=== PATIENT | male | born 1985 | race Two or more races ===

== ENCOUNTER 2023-12-10 21:00 | Observation (INO) | payer OTHER ==
[2023-12-10 21:10] VITALS: BMI 32.8
[2023-12-10 21:49] LABS: HEMATOCRIT 27.1 % (35.4-49); HEMOGLOBIN 8.8 GM/dL (11.7-16.9); MCH 25.1 pg (25.7-33.7); MCHC 32.5 g/dl (32.0-35.9); MEAN CELL VOLUME 77.2 fl (80-96); MEAN PLT VOLUME 8.6 fl (7.5-11.1); PLATELET COUNT 74 10^3/uL (134-434); RBC 3.51 M/mm3 (4.00-5.60); RDW 25.2 % (11.9-15.9); WHITE BLOOD COUNT 4.2 K/mm3 (4.0-10.0)
[2023-12-10 22:17] LABS: POTASSIUM 3.8 mmol/L (3.5-5.1)
[2023-12-10 22:22] LABS: BILIRUBIN,DIRECT 1.9 mg/dL (0.0-0.2); CREATININE 0.9 mg/dL (0.55-1.3)
[2023-12-10 22:24] LABS: BILIRUBIN,TOTAL 3.9 mg/dL (0.2-1); INR 1.87 (0.83-1.09); PROTHROMBIN TIME (PATIENT) 21.6 SEC (9.7-13.0); TOT PROT 7.2 g/dl (6.4-8.2)
[2023-12-10 23:11] LABS: ANISOCYTOSIS 1+; MACROCYTOSIS 1+; PLATELET ESTIMATE DECREASED; TARGET CELLS 1+
[2023-12-11 00:20] LABS: HEPATITIS B SURFACE AG MATERN NON-REACTIVE (NONREACTIVE)
[2023-12-11] MEDS: LACTATED RINGERS SOLUTION 1000 ML INFUS.BAG IV ONE (02:47)
[2023-12-11] MEDS: morphine CARPU-JECT 2 MG/1 ML DISP.SYRIN IVPUSH ONE (02:47)
[2023-12-11] MEDS ORDERED: ALBUTEROL SO4 HFA INHALER IH PRN (06:30)
[2023-12-11 07:01] LABS: POTASSIUM 3.5 mmol/L (3.5-5.1)
[2023-12-11 07:10] LABS: HEMATOCRIT 27.9 % (35.4-49); HEMOGLOBIN 9.1 GM/dL (11.7-16.9); MCH 25.4 pg (25.7-33.7); MCHC 32.6 g/dl (32.0-35.9); MEAN PLT VOLUME 8.6 fl (7.5-11.1); PLATELET COUNT 64 10^3/uL (134-434); RBC 3.57 M/mm3 (4.00-5.60); WHITE BLOOD COUNT 3.6 K/mm3 (4.0-10.0)
[2023-12-11 07:12] LABS: BLOOD UREA NITROGEN 6.9 mg/dL (7-18); CALCIUM 8.2 mg/dL (8.5-10.1); MAGNESIUM 1.5 mg/dL (1.8-2.4)
[2023-12-11 07:13] LABS: ALBUMIN 2.6 g/dl (3.4-5.0)
[2023-12-11 07:15] LABS: PHOSPHOROUS 3.1 mg/dL (2.5-4.9)
[2023-12-11] MEDS ORDERED: SODIUM CHLORIDE 1,000 ML IV SCH (07:15)
[2023-12-11 07:16] LABS: CREATININE 0.8 mg/dL (0.55-1.3)
[2023-12-11 07:17] LABS: BILIRUBIN,TOTAL 3.6 mg/dL (0.2-1); TOT PROT 6.9 g/dl (6.4-8.2)
[2023-12-11] MEDS: SODIUM CHLORIDE 1,000 ML IV SCH (09:19)
[2023-12-11] MEDS: OXYMETAZOLINE 0.05% NASAL SOLUTION 15 ML BOTTLE NS SCH (09:19)
[2023-12-11] MEDS: FOLIC ACID 1 MG TABLET (FP) PO SCH (09:20)
[2023-12-11] MEDS: THIAMINE HCL 100 MG TABLET (FP) PO SCH (09:20)
[2023-12-11] MEDS: PANTOPRAZOLE 40 MG TABLET PO SCH (09:20)
[2023-12-11] MEDS: BUDESONIDE/FORMETEROL FUMARATE 160/4.5 mcg INHALER IH SCH (09:20)
[2023-12-11] MEDS ORDERED: ENOXAPARIN NA (PORCINE) 40 MG/0.4 ML DISP.SYRIN SQ SCH (10:00)
[2023-12-11] MEDS ORDERED: OXYMETAZOLINE 0.05% NASAL SOLUTION 15 ML BOTTLE NS SCH (10:00)
[2023-12-11] MEDS ORDERED: predniSONE 20 MG TABLET (UD) PO SCH (10:00)
[2023-12-11 11:30] LABS: ANISOCYTOSIS 3+; MACROCYTOSIS 0; TARGET CELLS 1+
[2023-12-11] MEDS: MAGNESIUM 2GM/50ML STERILE WATER IVPB IVPB ONE (12:56)
[2023-12-11 14:25] VITALS: BP 121/69; PULSE 65; RESP 18; TEMP 98.2
== END 2023-12-11 16:00 | disposition home or self-care (01) ==
LOC: JER 21:00 → JERBED 12-11 03:58 → J6S 12-11 05:48
PROVIDERS: ADMIT Internal Medicine; ATTEND Internal Medicine
PROC: 3E0337Z Introduction of Electrolytic and Water Balance Substance into Peripheral Vein, Percutaneous Approach (ICD-10-PCS; principal; 2023-12-11)
PROC: 3E033GC Introduction of Other Therapeutic Substance into Peripheral Vein, Percutaneous Approach (ICD-10-PCS; 2023-12-11)
PROC: 3E033NZ Introduction of Analgesics, Hypnotics, Sedatives into Peripheral Vein, Percutaneous Approach (ICD-10-PCS; 2023-12-11)
DX: D64.9 Anemia, unspecified (principal); E80.6 Other disorders of bilirubin metabolism; R17 Unspecified jaundice; F10.99 Alcohol use, unspecified with unspecified alcohol-induced disorder; D69.6 Thrombocytopenia, unspecified; K27.9 Peptic ulcer, site unspecified, unspecified as acute or chronic, without hemorrhage or perforation; Z90.49 Acquired absence of other specified parts of digestive tract; K29.70 Gastritis, unspecified, without bleeding; R77.8 Other specified abnormalities of plasma proteins; Z98.84 Bariatric surgery status; Z91.013 Allergy to seafood; Z91.010 Allergy to peanuts; Z88.0 Allergy status to penicillin
CPT/HCPCS: 0241U-QW; 36415; 76705-TC; 80053; 80307; 82248; 83540; 83550; 83690; 83735; 84100; 85025; 85045; 85610; 85730; 86705; 86707; 86708; 86850; 86900; 86901; 87340; 87350; 87517; 87522; 96361; 96374; 96375; 99285-25; G0378

== ENCOUNTER 2024-08-02 11:39 | Emergency (ER) | payer OTHER ==
[2024-08-02 11:44] VITALS: BP 117/66; PULSE 96; RESP 18; TEMP 100.6; BMI 36.0
[2024-08-02] MEDS ORDERED: ACETAMINOPHEN 500 MG TABLET (FP) ONE (12:39)
[2024-08-02] MEDS ORDERED: FAMOTIDINE 20 MG TABLET ONE (12:39)
[2024-08-02] MEDS ORDERED: ALBUTEROL SO4 2.5/IPRATROPIUM 0.5 INH SOL 3 ML VIAL.NEB. NEB ONE (12:39)
[2024-08-02] MEDS: ALBUTEROL SO4 2.5/IPRATROPIUM 0.5 INH SOL 3 ML VIAL.NEB. NEB ONE (12:45)
[2024-08-02] MEDS: FAMOTIDINE 20 MG TABLET PO ONE (12:45)
[2024-08-02] MEDS: ACETAMINOPHEN 500 MG TABLET (FP) PO ONE (12:45)
[2024-08-02 13:13] LABS: THROAT:GRP A STREP NOT DETECTED (NOTDETECTED)
== END 2024-08-02 14:30 | disposition home or self-care (01) ==
LOC: JERFT 11:39
PROC: 3E0F7GC Introduction of Other Therapeutic Substance into Respiratory Tract, Via Natural or Artificial Opening (ICD-10-PCS; principal; 2024-08-02)
DX: R05.9 Cough, unspecified (principal); R09.81 Nasal congestion; R11.0 Nausea; R50.9 Fever, unspecified; R07.89 Other chest pain; R10.13 Epigastric pain; J06.9 Acute upper respiratory infection, unspecified; J40 Bronchitis, not specified as acute or chronic; J45.20 Mild intermittent asthma, uncomplicated; J02.9 Acute pharyngitis, unspecified; Z20.822 Contact with and (suspected) exposure to COVID-19
CPT/HCPCS: 0241U-QW; 71046-TC-FY; 87651; 93005; 93010; 99285-25

== ENCOUNTER 2024-10-31 15:55 | Emergency (ER) | payer OTHER ==
[2024-10-31 16:22] VITALS: BP 149/80; PULSE 70; RESP 20; TEMP 99.1; BMI 34.7
[2024-10-31] MEDS ORDERED: DIPHTH,PERTUSS(ACELL),TET 0.5 ML DISP.SYRIN IM ONE (17:09)
[2024-10-31] MEDS ORDERED: HIV POST EXPOSURE PROPHYLAXIS KIT PO ONE (17:09)
[2024-10-31 17:38] LABS: BASO % 0.5 % (0-2.0); EOS % 1.1 % (0-4.5); HEMATOCRIT 38.9 % (35.4-49); HEMOGLOBIN 12.5 GM/dL (11.7-16.9); LYMPH % 25.7 % (8-40); MCH 28.1 pg (25.7-33.7); MCHC 32.2 g/dl (32.0-35.9); MEAN CELL VOLUME 87.5 fl (80-96); MEAN PLT VOLUME 9.9 fl (7.5-11.1); MONO % 9.3 % (3.8-10.2); NEUT % 63.4 % (42.8-82.8); PLATELET COUNT 105 10^3/uL (134-434); RBC 4.45 M/mm3 (4.00-5.60); WHITE BLOOD COUNT 5.3 K/mm3 (4.0-10.0)
[2024-10-31 17:42] LABS: URINE APPEARANCE CLEAR; URINE BILIRUBIN NEGATIVE (NEGATIVE); URINE COLOR DK YELLOW; URINE GLUCOSE (UA) NEGATIVE (NEGATIVE); URINE KETONE TRACE (NEGATIVE); URINE LEUK ESTERASE NEGATIVE (NEGATIVE); URINE NITRITE NEGATIVE (NEGATIVE); URINE PROTEIN NEGATIVE (NEGATIVE)
[2024-10-31 17:49] LABS: POTASSIUM 3.7 mmol/L (3.5-5.1)
[2024-10-31] MEDS: DIPHTH,PERTUSS(ACELL),TET 0.5 ML DISP.SYRIN IM ONE (17:50)
[2024-10-31 17:51] LABS: BLOOD UREA NITROGEN 5.8 mg/dL (7-18); CALCIUM 8.7 mg/dL (8.5-10.1)
[2024-10-31] MEDS: HIV POST EXPOSURE PROPHYLAXIS KIT PO ONE (17:51)
[2024-10-31 17:52] LABS: ALBUMIN 3.5 g/dl (3.4-5.0)
[2024-10-31 17:55] LABS: CREATININE 1.1 mg/dL (0.55-1.3)
[2024-10-31 17:56] LABS: BILIRUBIN,TOTAL 4.1 mg/dL (0.2-1); TOT PROT 7.8 g/dl (6.4-8.2)
[2024-10-31 20:12] LABS: HIV INTERPRETATION NEGATIVE (NEGATIVE)
== END 2024-10-31 18:00 | disposition home or self-care (01) ==
LOC: JER 15:55
PROC: 3E02329 Introduction of Other Anti-infective into Muscle, Percutaneous Approach (ICD-10-PCS; principal; 2024-10-31)
PROC: 3E0234Z Introduction of Serum, Toxoid and Vaccine into Muscle, Percutaneous Approach (ICD-10-PCS; 2024-10-31)
DX: K62.5 Hemorrhage of anus and rectum (principal)
CPT/HCPCS: 36415; 80053; 81003; 85025; 86704; 86803; 87086; 87340; 87389; 87491; 87517; 87591; 90471; 90715; 96372; 99284-25